=== PATIENT | male | born 1960 | race Two or more races ===

== ENCOUNTER 2017-03-12 10:29 | Emergency (ER) | payer MEDICAID ==
[~2017-03-12] VITALS: Ht 177.8 cm; Wt 73.0 kg
--- NOTE | 2017-03-12 10:37 | NUR ---
AAOX3, CAME TO ER C/O BILATERAL FLANK PAIN X 2 WEEKS. COUGH X 3 DAYS. +DYSURIA AND HEMATURIA. RR IS EVEN AND UNLABORED. NO ACUTE DISTRESS NOTED. AWAITING MD FOR EVAL.
[2017-03-12 10:59] LABS: APPEARANCE,URINE Clear (CLEAR); BILIRUBIN,URINE Negative (NEGATIVE); BLOOD, URINE Small Ery/uL (NEGATIVE); COLOR,URINE Yellow (YELLOW); KETONES,URINE Negative (NEGATIVE); LEUKOCYTE ESTERASE ,URINE Negative (NEGATIVE); NITRITE, URINE Negative (NEGATIVE); PH,URINE 6.5 (5.0-8.0); PROTEIN,URINE Negative (NEGATIVE); UGLUCOSE Negative (NEGATIVE)
[2017-03-12 11:04] LABS: BACTERIA,URINE Rare /HPF (None Seen); MUCUS,URINE Few /LPF (None Seen); SQUAMOUS EPITHELIAL CELL,UR Few /HPF (None Seen); WBC,URINE 0-2 /HPF (0-3)
[2017-03-12 11:19] VITALS: BP 138/97
--- NOTE | 2017-03-12 11:20 | NUR ---
Patient discharged to home in stable condition. Written and verbal after care instructions given. Patient verbalizes understanding of instruction.
== END 2017-03-12 11:19 | disposition home or self-care (01) ==
LOC: ER 10:36
DX: M54.9 Dorsalgia, unspecified (principal); E11.9 Type 2 diabetes mellitus without complications; Z51.5 Encounter for palliative care
CPT/HCPCS: 81000-TC; 82962-TC; A4606; Z7610